=== PATIENT | female | born 1970 | race Caucasian/White ===

== ENCOUNTER 2017-08-09 21:20 | Emergency (ER) | payer OTHER ==
[~2017-08-09] VITALS: Ht 152.4 cm; Wt 87.2 kg
[2017-08-09] MEDS ORDERED: SODIUM CHLORIDE 0.9% 1,000ML IVBOLUS ONE (22:30)
[2017-08-09] MEDS ORDERED: METOCLOPRAMIDE 5 MG/ML, 2ML IVPush ONE (22:30)
[2017-08-09] MEDS ORDERED: DIPHENHYDRAMINE 25 MG CAPSULE PO ONE (22:30)
[2017-08-09] MEDS ORDERED: DEXAMETHASONE 4 MG/ML, 1ML IVPush ONE (22:30)
[2017-08-09] MEDS ORDERED: METOCLOPRAMIDE 5 MG/ML, 2ML ONE (22:39)
[2017-08-09] MEDS ORDERED: DIPHENHYDRAMINE 25 MG CAPSULE ONE (22:39)
[2017-08-09] MEDS ORDERED: DEXAMETHASONE 4 MG/ML, 1ML ONE (22:39)
[2017-08-10 00:04] VITALS: BP 136/82
== END 2017-08-10 01:05 | disposition home or self-care (01) ==
LOC: ED 23:55
DX: R51 Headache (principal); I10 Essential (primary) hypertension; Z87.891 Personal history of nicotine dependence
CPT/HCPCS: 93005; 96361; 96374; 96375; 99284; J1100; J2765; J7030; Q0163

== ENCOUNTER 2018-09-06 09:28 | Emergency (ER) | payer OTHER ==
[~2018-09-06] VITALS: Ht 152.4 cm; Wt 86.7 kg
[2018-09-06 09:34] VITALS: BP 161/92
[2018-09-06] MEDS ORDERED: SODIUM CHLORIDE 0.9% 1,000ML IVBOLUS ONE (10:00)
[2018-09-06] MEDS ORDERED: MORPHINE SULFATE 4 MG/ML, 1ML IVPush PRN (10:00)
[2018-09-06] MEDS ORDERED: SODIUM CHLORIDE FLUSH 10ML SYR IVF ONE (10:00)
[2018-09-06] MEDS ORDERED: ONDANSETRON ODT 4 MG PO ONE (10:30)
[2018-09-06 10:39] LABS: BASOPHILS # (AUTO) 0.07 x10^3/uL (0-0.1); BASOPHILS % (AUTO) 1 % (0-1); EOSINOPHILS % (AUTO) 1 % (1-7); LYMPHOCYTES # (AUTO) 2.14 x10^3/uL (1-3.4); LYMPHOCYTES % (AUTO) 25 % (22-44); MD NO; MEAN CORPUSCULAR HEMOGLOBIN 28.7 pg (27.0-34.8); MEAN CORPUSCULAR HGB CONC 33.6 g/dL (32.4-35.8); MEAN CORPUSCULAR VOLUME 85.3 fL (80-100); MEAN PLATELET VOLUME 7.5 fL (7.4-10.4); MONOCYTES # (AUTO) 0.91 x10^3/uL (0.2-0.8); MONOCYTES % (AUTO) 11 % (2-9); NEUTROPHILS # (AUTO) 5.33 x10^3/uL (1.8-6.8); NEUTROPHILS % (AUTO) 62 % (42-75); PLATELET COUNT 353 x10^3/uL (130-400); RED BLOOD COUNT 4.58 x10^6/uL (3.82-5.3); RED CELL DISTRIBUTION WIDTH 14.3 % (9.6-15.2)
[2018-09-06] MEDS ORDERED: ONDANSETRON ODT 4 MG ONE (10:39)
[2018-09-06] MEDS ORDERED: MORPHINE SULFATE 4 MG/ML, 1ML ONE (10:39)
[2018-09-06 10:50] LABS: ALBUMIN 3.7 g/dL (3.4-5.0); ANION GAP 8 mmol/L (5-15); CHLORIDE 110 mmol/L (98-107)
[2018-09-06 10:58] LABS: ALANINE AMINOTRANSFERASE 22 U/L (12-78); ALKALINE PHOSPHATASE 52 U/L (45-117); BILIRUBIN,TOTAL 0.2 mg/dL (0.2-1.0); CREATININE 0.83 mg/dL (0.55-1.02); TOTAL PROTEIN 7.2 g/dL (6.4-8.2)
[2018-09-06 11:06] LABS: CULTURE INDICATED? NO; MICROSCOPIC NOT IND
== END 2018-09-06 12:26 | disposition home or self-care (01) ==
LOC: ED 12:00
DX: N80.9 Endometriosis, unspecified (principal); I10 Essential (primary) hypertension; G89.29 Other chronic pain; R11.10 Vomiting, unspecified
CPT/HCPCS: 36415; 74022; 80053; 81003; 83690; 84703; 85025; 96361; 96374; 99285; J7030; Q0162

== ENCOUNTER 2019-01-14 17:45 | Observation (INO) | payer OTHER ==
[~2019-01-14] VITALS: Ht 154.9 cm; Wt 86.0 kg
[2019-01-14] MEDS ORDERED: SODIUM CHLORIDE FLUSH 10ML SYR IVF ONE (18:30)
[2019-01-14 18:54] LABS: BASOPHILS # (AUTO) 0.09 x10^3/uL (0-0.1); BASOPHILS % (AUTO) 1 % (0-1); EOSINOPHILS # (AUTO) 0.14 x10^3/uL (0-0.4); EOSINOPHILS % (AUTO) 2 % (1-7); LYMPHOCYTES # (AUTO) 2.17 x10^3/uL (1-3.4); LYMPHOCYTES % (AUTO) 26 % (22-44); MD NO; MEAN CORPUSCULAR HEMOGLOBIN 28.4 pg (27.0-34.8); MEAN CORPUSCULAR HGB CONC 33.8 g/dL (32.4-35.8); MEAN CORPUSCULAR VOLUME 83.9 fL (80-100); MEAN PLATELET VOLUME 7.5 fL (7.4-10.4); MONOCYTES % (AUTO) 11 % (2-9); NEUTROPHILS # (AUTO) 5.08 x10^3/uL (1.8-6.8); NEUTROPHILS % (AUTO) 61 % (42-75); PLATELET COUNT 329 x10^3/uL (130-400); RED BLOOD COUNT 4.43 x10^6/uL (3.82-5.3); RED CELL DISTRIBUTION WIDTH 14.1 % (9.6-15.2)
[2019-01-14 19:04] LABS: ALBUMIN 3.5 g/dL (3.4-5.0); ANION GAP 7 mmol/L (5-15); CALCIUM 8.7 mg/dL (8.5-10.1); CHLORIDE 108 mmol/L (98-107); CREATININE 0.79 mg/dL (0.55-1.02)
[2019-01-14 19:08] LABS: TROPONIN I < 0.015 ng/mL (0.000-0.045)
--- NOTE | 2019-01-14 19:15 | NUR ---
ASSUME CARE PT GIVEN WATER, RESTING IN BED
[2019-01-14] MEDS ORDERED: SODIUM CHLORIDE FLUSH 10ML SYR IVF PRN (20:00)
[2019-01-14] MEDS ORDERED: LISI40TA PO (20:01)
[2019-01-14] MEDS ORDERED: HYDR12.517 PO (20:01)
[2019-01-14] MEDS ORDERED: AMLO-150 PO (20:01)
--- NOTE | 2019-01-14 20:30 | NUR ---
PT PLACED ON HOSPITAL BED, REPORTS PAIN FREE AT THIS TIME, AWARE OF ADMISSION CONT TO MONITOR
--- NOTE | 2019-01-14 21:14 | NUR ---
REPORT GIVEN TO NORMA MACHUCA
[2019-01-14] MEDS: SODIUM CHLORIDE 0.9% 1,000 ML IV SCH (21:23)
--- NOTE | 2019-01-14 21:25 | NUR ---
PT RESTING IN BED IN NAD. WAITING ON TELE BED.
[2019-01-14] MEDS ORDERED: DOCUSATE 100 MG CAPSULE PO PRN (21:30)
[2019-01-14] MEDS ORDERED: PROMETHAZINE 25 MG/ML, 1ML IM PRN (21:30)
[2019-01-14] MEDS ORDERED: POLYETHYLENE GLYCOL 17 GM PACKET PO PRN (21:30)
[2019-01-14] MEDS ORDERED: hydrALAzine 20 MG/ML, 1ML IVPush PRN (21:30)
[2019-01-14] MEDS ORDERED: ONDANSETRON 2MG/ML, 2ML IVPush PRN (21:30)
[2019-01-14] MEDS: PANTOPRAZOLE 40 MG IV IVPush SCH (21:30)
[2019-01-14] MEDS ORDERED: ONDANSETRON ODT 4 MG PO PRN (21:30)
[2019-01-14] MEDS: HEPARIN 5,000 UNITS/ML, 1ML SQ SCH (21:30)
[2019-01-14] MEDS ORDERED: BISACODYL 10 MG SUPP PR PRN (21:30)
[2019-01-14] MEDS ORDERED: morphine SULFATE 10 MG/ML, 1ML IVPush PRN (21:30)
[2019-01-14] MEDS ORDERED: ACETAMINOPHEN 325 MG TABLET PO PRN (21:30)
[2019-01-14] MEDS ORDERED: NITROGLYCERIN 0.4 MG BOTTLE (25 TABS) SL PRN (21:30)
[2019-01-14] MEDS ORDERED: OMNIPAQUE 350 MG/ML, 100ML BOTTLE ONE (22:02)
[2019-01-14 22:06] LABS: FREE T4 (FREE THYROXINE) 0.93 ng/dL (0.76-1.46); TROPONIN I < 0.015 ng/mL (0.000-0.045)
--- NOTE | 2019-01-14 22:07 | NUR ---
REPORT TO WILL Brasher RN.
[2019-01-14] MEDS ORDERED: HEPARIN 5,000 UNITS/ML, 1ML ONE (22:08)
[2019-01-14] MEDS ORDERED: PANTOPRAZOLE 40 MG IV ONE (22:09)
[2019-01-14 22:12] LABS: THYROID STIMULATING HORMONE 0.804 mIU/L (0.358-3.740)
--- NOTE | 2019-01-14 22:25 | NUR ---
PT MEDICATED PER EMAR. IVF STARTED ON PUMP. PT RESTING IN HOSPITAL BED COMFORTABLEY.
[2019-01-14 22:41] LABS: HEMOGLOBIN A1C 5.6 % (4.2-6.3)
[2019-01-14 23:45] VITALS: BP 106/59
[2019-01-15 00:34] LABS: MICROSCOPIC NOT IND
[2019-01-15 00:40] LABS: CULTURE INDICATED? NO
[2019-01-15 03:07] VITALS: BP 98/66
[2019-01-15 05:27] LABS: CHLORIDE 108 mmol/L (98-107)
[2019-01-15 05:33] LABS: BASOPHILS # (AUTO) 0.05 x10^3/uL (0-0.1); BASOPHILS % (AUTO) 1 % (0-1); EOSINOPHILS # (AUTO) 0.11 x10^3/uL (0-0.4); EOSINOPHILS % (AUTO) 2 % (1-7); LYMPHOCYTES # (AUTO) 1.67 x10^3/uL (1-3.4); LYMPHOCYTES % (AUTO) 30 % (22-44); MD NO; MEAN CORPUSCULAR HGB CONC 33.2 g/dL (32.4-35.8); MEAN CORPUSCULAR VOLUME 84.4 fL (80-100); MEAN PLATELET VOLUME 7.6 fL (7.4-10.4); MONOCYTES # (AUTO) 0.56 x10^3/uL (0.2-0.8); MONOCYTES % (AUTO) 10 % (2-9); NEUTROPHILS # (AUTO) 3.15 x10^3/uL (1.8-6.8); NEUTROPHILS % (AUTO) 57 % (42-75); PLATELET COUNT 289 x10^3/uL (130-400); RED BLOOD COUNT 4.46 x10^6/uL (3.82-5.3); RED CELL DISTRIBUTION WIDTH 13.6 % (9.6-15.2)
[2019-01-15 05:37] LABS: ALANINE AMINOTRANSFERASE 16 U/L (12-78); ALBUMIN 3.3 g/dL (3.4-5.0); ALKALINE PHOSPHATASE 40 U/L (45-117); ANION GAP 7 mmol/L (5-15); BILIRUBIN,TOTAL 0.4 mg/dL (0.2-1.0); CALCIUM 8.5 mg/dL (8.5-10.1); CHOL/HDL RATIO 5.5; CHOLESTEROL, TOTAL 187 mg/dL (140-239); CREATININE 0.74 mg/dL (0.55-1.02); HDL CHOL % 18 % (28-40); HDL CHOLESTEROL (DIRECT) 34 mg/dL (40-60); LDL CHOLESTEROL,CALCULATED 118 mg/dL (54-169); LDL/HDL RATIO 3.5 (0.5-3.0); TOTAL PROTEIN 6.6 g/dL (6.4-8.2); TRIGLYCERIDES 177 mg/dL (50-200); TROPONIN I < 0.015 ng/mL (0.000-0.045); VLDL CHOLESTEROL 35 mg/dL (0-25)
[2019-01-15] MEDS ORDERED: ASPIRIN 325 MG TABLET EC PO SCH (06:00)
[2019-01-15] MEDS: HEPARIN 5,000 UNITS/ML, 1ML SQ SCH ×2 (06:12→13:30)
[2019-01-15 06:50] VITALS: BP 106/71
[2019-01-15] MEDS: PANTOPRAZOLE 40 MG IV IVPush SCH (07:48)
[2019-01-15] MEDS ORDERED: LISINOPRIL 20 MG TABLET PO SCH (09:00)
[2019-01-15] MEDS: SODIUM CHLORIDE 0.9% 1,000 ML IV SCH (12:43)
[2019-01-15 15:51] VITALS: BP 123/85
== END 2019-01-15 16:35 | disposition home or self-care (01) ==
LOC: ED 20:26 → EDIP 21:33 → INTOOBSV 21:33 → CCU 23:25 → 5SO 01-15 03:03 → DCLOUNGE 01-15 16:27
PROVIDERS: ADMIT Internal Medicine; ATTEND Internal Medicine
DX: R07.2 Precordial pain (principal); I10 Essential (primary) hypertension; R11.2 Nausea with vomiting, unspecified; I87.2 Venous insufficiency (chronic) (peripheral); Z87.891 Personal history of nicotine dependence
CPT/HCPCS: 36415; 71045; 71275; 78452; 80048; 80053; 80061; 81003; 82040; 83036; 83735; 84439; 84443; 84484; 85025; 87081; 93005; 93017; 96361; 96372; 96374; 96376; 99284; A9502; C9113; C9898; G0378; J1644; J7030; Q9967

== ENCOUNTER 2020-11-07 16:18 | Emergency (ER) | payer OTHER ==
[~2020-11-07] VITALS: Ht 152.4 cm; Wt 94.8 kg
[~2020-11-07 16:18] MED LIST: AMLO-150 PO; HYDR12.517 PO; LISI40TA PO
[2020-11-07] MEDS ORDERED: DEXAMETHASONE 4 MG TABLET PO ONE (17:30)
[2020-11-07] MEDS ORDERED: DEXAMETHASONE 4 MG TABLET ONE (19:14)
[2020-11-07] MEDS ORDERED: ACETAMINOPHEN 500 MG TABLET ONE (19:21)
[2020-11-07] MEDS ORDERED: ACETAMINOPHEN 500 MG TABLET PO ONE (19:30)
[2020-11-07 19:53] VITALS: BP 157/72
== END 2020-11-07 19:56 | disposition home or self-care (01) ==
LOC: ED 19:00
DX: J02.0 Streptococcal pharyngitis (principal); R05 Cough; R50.9 Fever, unspecified; R00.0 Tachycardia, unspecified; I10 Essential (primary) hypertension
CPT/HCPCS: 87880; 99283

== ENCOUNTER 2020-12-17 02:22 | Emergency (ER) | payer OTHER ==
[~2020-12-17] VITALS: Ht 152.4 cm; Wt 95.4 kg
[2020-12-17] MEDS ORDERED: HYDR12.575 PO (02:54)
[2020-12-17] MEDS ORDERED: IBUP-1623 PO (02:54)
[2020-12-17] MEDS ORDERED: AMLO5TAB4 PO (02:54)
[2020-12-17] MEDS ORDERED: SODIUM CHLORIDE 0.9% 1,000ML IVBOLUS ONE (03:00)
[2020-12-17] MEDS ORDERED: ONDANSETRON 2MG/ML, 2ML IVPush ONE (03:00)
[2020-12-17] MEDS ORDERED: ONDANSETRON 2MG/ML, 2ML ONE (03:01)
[2020-12-17 03:16] LABS: BASOPHILS % (AUTO) 0 % (0-1); EOSINOPHILS % (AUTO) 0 % (1-7); LYMPHOCYTES % (AUTO) 5 % (22-44); MEAN CORPUSCULAR HEMOGLOBIN 27.6 pg (27.0-34.8); MEAN CORPUSCULAR HGB CONC 33.7 g/dL (32.4-35.8); MEAN PLATELET VOLUME 7.1 fL (7.4-10.4); MONOCYTES % (AUTO) 5 % (2-9); NEUTROPHILS % (AUTO) 90 % (42-75); PLATELET COUNT 335 x10^3/uL (130-400); RED BLOOD COUNT 4.76 x10^6/uL (3.82-5.3); RED CELL DISTRIBUTION WIDTH 13.8 % (9.6-15.2)
[2020-12-17 03:23] LABS: ALANINE AMINOTRANSFERASE 15 U/L (12-78); ALBUMIN 3.5 g/dL (3.4-5.0); ANION GAP 7 mmol/L (5-15); CALCIUM 8.7 mg/dL (8.5-10.1); CHLORIDE 102 mmol/L (98-107); CREATININE 0.76 mg/dL (0.55-1.02)
[2020-12-17 03:28] LABS: ALKALINE PHOSPHATASE 50 U/L (45-117); BILIRUBIN,TOTAL 0.4 mg/dL (0.2-1.0); TOTAL PROTEIN 7.2 g/dL (6.4-8.2); TROPONIN I < 0.015 ng/mL (0.000-0.045)
--- NOTE | 2020-12-17 03:35 | NUR ---
patient presenting to ED with various complaints of sudden onset of sore throat which she states feels similar to her recent dx of strept throat 1.5 months ago. in NAD. call ornelas in reach; safety maintained. placed on airborne precautions for COVID r/o. will continue to monitor. Proper PPE worn in room.
[2020-12-17 03:38] LABS: MD NO
[2020-12-17] MEDS ORDERED: KETOROLAC 30 MG/1 ML ONE (03:48)
[2020-12-17] MEDS ORDERED: KETOROLAC 30 MG/1 ML IVPush ONE (04:00)
[2020-12-17 04:20] LABS: MICROSCOPIC NOT IND
--- NOTE | 2020-12-17 05:00 | NUR ---
in NAD. resting in bed with call ornelas in reach. lights dimmed per patient preference. safety maintained. will continue to monitor.
[2020-12-17] MEDS ORDERED: BICILLIN-LA 1,200,000 UNITS/2 ML IM ONE (05:30)
[2020-12-17 05:36] VITALS: BP 125/67
--- NOTE | 2020-12-17 06:05 | NUR ---
discharge instructions reviewed with patient. no further questions at this time. patient given work note, COVID info sheet and discharge instructions/prescription. all personal belongings with patient. IV removed prior to DC. ambulatory out of ED
== END 2020-12-17 06:11 | disposition home or self-care (01) ==
LOC: ED 03:36
DX: J02.0 Streptococcal pharyngitis (principal); Z20.822 Contact with and (suspected) exposure to COVID-19; R42 Dizziness and giddiness; R11.0 Nausea; R00.0 Tachycardia, unspecified; R94.31 Abnormal electrocardiogram [ECG] [EKG]; I10 Essential (primary) hypertension; G43.909 Migraine, unspecified, not intractable, without status migrainosus; Z90.49 Acquired absence of other specified parts of digestive tract
CPT/HCPCS: 71045; 80053; 81003; 84484; 84703; 85025; 87635; 87880; 93005; 96361; 96372; 96374; 96375; 99285; J0561; J1885; J2405; J7030